=== PATIENT | female | born 1995 | race Caucasian/White ===

== ENCOUNTER 2019-05-03 18:29 | Emergency (ER) | payer OTHER ==
[~2019-05-03] VITALS: Ht 167.6 cm; Wt 72.6 kg
--- OUTSIDE RECORDS SUMMARY | 2019-05-03 18:31 | XMS REPORT ---
[facility] Address Unknown Phone Unavailable Care Team Providers [facility] Front Desk Clerk Name Role Phone Unavailable Unavailable Payers Payer Name Policy Type Policy Number Effective Date Expiration Date Problems This patient has no known problems. Allergies, Adverse Reactions, Alerts Allergy Name Allergy Type Status Severity Reaction(s) Onset Date Inactive Date Treating Clinician Comments No Known Allergies DA Active U 2015-03-21 00:00:00 Medications This patient has no known medications. Results Test Description Test Time Test Comments Text Results Atomic Results Result Comments URINALYSIS COMPLETE 2019-04-30 17:27:00 UA COLOR (test code=COLU) YELLOW YELLOW UA APPEARANCE (test code=APPU) CLEAR CLEAR UA GLUCOSE DIPSTICK (test code=DGLUU) NEGATIVE mg/dL NEGATIVE UA BILIRUBIN DIPSTICK (test code=BILU) NEGATIVE mg/dL NEGATIVE UA KETONE DIPSTICK (test code=KETU) >150 (4+) mg/dL NEGATIVE UA SPECIFIC GRAVITY (test code=SGU) 1.024 1.001-1.035 UA BLOOD DIPSTICK (test code=RIKA) Negative mg/dL NEGATIVE UA PH DIPSTICK (test code=VIVIAN) 8.5 5.0-8.0 UA PROTEIN DIPSTICK (test code=PROU) 100 (2+) mg/dL NEGATIVE UA UROBILINIOGEN DIPSTICK (test code=URO) Normal mg/dL NEGATIVE UA NITRITE DIPSTICK (test code=DAVIE) NEGATIVE NEGATIVE UA LEUKOCYTE ESTERASE W REFLEX (test code=LEUUR) NEGATIVE Mayito/uL NEGATIVE UA WBC (test code=WBCU) 0-5 per HPF 0-5 UA RBC (test code=RBCU) 0-2 #/HPF 0-5 UA EPITHELIAL CELLS (test code=EPIU) FEW per HPF FEW UA BACTERIA (test code=BACU) FEW #/HPF NONE UA MUCUS (test code=MUCU) MODERATE #/LPF FEW Urine Source? Clean CatchURINALYSIS [id number] 17:24:00* Test Item Value Reference Range Comments UA COLOR (test code=COLU) YELLOW YELLOW UA APPEARANCE (test code=APPU) CLEAR CLEAR UA GLUCOSE DIPSTICK (test code=DGLUU) NEGATIVE mg/dL NEGATIVE UA BILIRUBIN DIPSTICK (test code=BILU) NEGATIVE mg/dL NEGATIVE UA KETONE DIPSTICK (test code=KETU) >150 (4+) mg/dL NEGATIVE UA SPECIFIC GRAVITY (test code=SGU) 1.024 1.001-1.035 UA BLOOD DIPSTICK (test code=RIKA) Negative mg/dL NEGATIVE UA PH DIPSTICK (test code=VIVIAN) 8.5 5.0-8.0 UA PROTEIN DIPSTICK (test code=PROU) 100 (2+) mg/dL NEGATIVE UA UROBILINIOGEN DIPSTICK (test code=URO) Normal mg/dL NEGATIVE UA NITRITE DIPSTICK (test code=DAVIE) NEGATIVE NEGATIVE UA LEUKOCYTE ESTERASE W REFLEX (test code=LEUUR) NEGATIVE Mayito/uL NEGATIVE UA WBC (test code=WBCU) per HPF 0-5 UA RBC (test code=RBCU) per HPF 0-5 UA EPITHELIAL CELLS (test code=EPIU) per HPF Few UA BACTERIA (test code=BACU) per HPF NONE Urine Source? Clean CatchBASIC METABOLIC [id number] 15:54:00* Test Item Value Reference Range Comments SODIUM (test code=NA) 137 mmol/L 136-145 POTASSIUM (test code=K) 3.9 mmol/L 3.5-5.1 CHLORIDE (test code=CL) 102.0 mmol/L 98-107 CARBON DIOXIDE (test code=CO2) 24.0 mmol/L 21-32 ANION GAP (test code=GAP) 14.9 10-20 GLUCOSE (test code=GLU) 84 mg/dL 74-106 BLOOD UREA NITROGEN (test code=BUN) 5 mg/dL 7-18 GLOMERULAR FILTRATION RATE (test code=GFR) > 60 mL/min >=60 Estimated GFR by using Modified MDRD formula.Chronic kidney disease is defined as either kidney damageor GFR <60 mL/min/1.73 m2 for >3 months. CREATININE (test code=CREAT) 0.60 mg/dL 0.55-1.02 Note change in reference range due to change in reagent. BUN/CREATININE RATIO (test code=BUN/CREA) 7.7 10-20 CALCIUM (test code=CA) 9.8 mg/dL 8.5-10.1 HEPATIC FUNCTION [id number] 15:54:00* Test Item Value Reference Range Comments TOTAL PROTEIN (test code=PROT) 8.4 gram/dL 6.4-8.2 ALBUMIN (test code=ALB) 4.5 g/dL 3.4-5.0 GLOBULIN (test code=GLOB) 3.9 gram/dL 2.7-4.2 ALBUMIN/GLOBULIN RATIO (test code=A/G) 1.2 0.75-1.50 BILIRUBIN TOTAL (test code=BILT) 0.50 mg/dL 0.0-1.0 BILIRUBIN DIRECT (test code=BILD) 0.15 mg/dL 0.0-0.20 SGOT/AST (test code=AST) 14 IUnit/L 15-37 SGPT/ALT (test code=ALT) 32 IUnit/L 12-78 ALKALINE PHOSPHATASE TOTAL (test code=ALKP) 55 IUnit/L 45-117 Note change in reference range due to change in reagent. [id number] 15:54:00* Test Item Value Reference Range Comments LIPASE (test code=LIP) 59 U/L 73.0-393.0 HCG SERUM [id number] 15:54:00* Test Item Value Reference Range Comments HCG SERUM BETA (test code=HCG) 66594.0 mIU/mL 0-3 Interfering substances present in the serum of somepatients may cause a false-positive result in this assay.Questionable elevations in serum hCG should be confirmedwith a urine hCG. Suspected Trophoblastic Neoplasms shouldnot be diagnosed based on serun hCG/beta hCG alone. Theymust be confirmed by clinical history and tissue diagnosis.INTERPRETATION:B-HCG LEVELS <5 SHOULD BE CONSIDERED "NEGATIVE." *WHEN BODERLINE RESULTS ARE ENCOUNTERED,PATIENT SAMPLESSHOULD BE REDRAWN 48 HOURS. 0-1 WEEKS AFTER CONCEPTION 5-50 MIU/ML1-2 WEEKS AFTER CONCEPTION 50-500 MIU/ML2-3 WEEKS AFTER CONCEPTION 100 -5,000 MIU/ML3-4 WEEKS AFTER CONCEPTION 500-10,000 MIU/ML4-5 WEEKS AFTER CONCEPTION 1000 -50,000 MIU/ML5-6 WEEKS AFTER CONCEPTION 10,000-100,000 MIU/ML6-8 WEEKS AFTER CONCEPTION 15,000- 200,000 MIU/ML2-3 MONTHS AFTER CONCEPTION 10,000-100,000 MIU/ML - US PREG UT [id number] 15:38:00 Name: PRINCESS REGAN [facility] : 1995 Age/S: 23 / F [address] [facility] Unit #: [id number] Loc: [place] [address] Phys: Lynn Nesbitt NP Acct: [id number] Dis Date: Status: REG ER PHONE #: [phone] Exam Date: 04/30/2019 1529 FAX #: [phone] Reason: PELVIC PAIN EXAMS: CPT CODE: [id number] US PREG UT TRANSVAGINAL 35028 REASON FOR EXAM: VAGINAL BLEEDING/PELVIC PAIN EXAM ORDER DATE: 04/30/2019 2:45 PM Attending MRaymundo: Lynn Nesbitt NP PROCEDURE: - US PREG 1ST TRIMTR, - DUP AB/PEL/SC COMP, - US PREG UT TRANSVAGINAL Technique: Grayscale images, color doppler, and spectral doppler images of the uterus and ovaries were obtained utilizing A transabdominal and transvaginal approach. Comparison study: None FINDINGS: Uterus: size: 8.5 x 3.7 x 5.7 cm using transabdominal measurements There is an intrauterine gestational sac with a mean diameter of 2.4 cm. Yolk sac measuring up to 5 mm is present. There is a pole with a crown-rump length of 9.3 mm. heart rate measures 147 bpm. There is a subchorionic hematoma measuring up to 8 mm in size. A second subchorionic hematoma measuring up to 6 mm in size is present. There is a third subchorionic hematoma which also measures 8 mm in size. Right ovary: size: 4.2 x 2.3 x 2.4 cm cysts/masses: Incidental note is made of a corpus luteal cyst that measures up to 1.7 cm in diameter Doppler findings: Normal arterial and venous waveforms. adnexal masses: None Left ovary: size: 1.7 x 1.3 x 1.5 cm cysts/masses: None Doppler findings: Normal arterial and venous waveforms. adnexal masses: None Free fluid: No fluid seen in the cul-d e-sac. IMPRESSION: PAGE 1 S igned Report (CONTINUED) Name: PRINCESS REGAN [facility] : 1995 Age/S: 23 / F [address] [facility] Unit #: [id number] Loc: [place] [address] Phys: Lynn Nesbitt [employer] Acct: [id number] Dis Date: Status: REG ER PHONE #: [phone] Exam Date: 04/30/20191528 FAX #: [phone] Reason: PELVIC PAIN EXAMS: CPT CODE: [id number] US PREG UT TRANSVAGINAL 17148 <Continued> Viable intrauterine with estimated gestational age 7 weeks 1 day +/-3 days. Subchorionic hematomas as described above. at 1538 Reported and signed by: Thierno Gerardo MD CC: Lynn Nesbitt NP Technologist: HÉCTOR ROGERS RT(R),RDMS Trnscb Date/Time: 04/30/2019 (1538) [email or web address] Orig Print D/T: S: 04/30/2019 (1541) Probe: [id number] PAGE 2 Signed Report - DUP AB/PEL/SC COMP 2019-04-30 15:38:00 Name: PRINCESS REGAN [facility] : 1995 Age/S: 23 / F [address] Unit #: [id number] Loc: [place] [address] Phys: Lynn Nesbitt [employer] Acct: [id number] Dis Date: Status: REG ER PHONE #: [phone] Exam Date: 04/30/2019 1529 FAX #: [phone] Reason: PELVIC PAIN EXAMS: CPT CODE: [id number] DUP AB/PEL/SC COMP 19921 REASON FOR EXAM: VAGINAL BLEEDING/PELVIC PAIN EXAM ORDER DATE: 04/30/2019 2:45 PM Attending Marsha: Lynn Nesbitt NP PROCEDURE: - US PREG 1ST TRIMTR, - DUP AB/PEL/SC COMP, - US PREG UT TRANSVAGINAL Technique: Grayscale images, color doppler, and spectral doppler images of the uterus and ovaries were obtained utilizing A transabdominal and transvaginal approach. Comparison study: None FINDINGS: Uterus: size: 8.5 x 3.7 x 5.7 cm using transabdominal measurements There is an intrauterine gestational sac with a mean diameter of 2.4 cm. Yolk sac measuring up to 5 mm is present. There is a pole with a crown-rump length of 9.3 mm. heart rate measures 147 bpm. There is a subchorionic hematoma measuring up to 8 mm in size. A second subchorionic hematoma measuring up to 6 mm in size is present. There is a third subchorionic hematoma which also measures 8 mm in size. Right ovary: size: 4.2 x 2.3 x 2.4 cm cysts/masses: Incidental note is made of a corpus luteal cyst that measures up to 1.7 cm in diameter Doppler findings: Normal arterial and venous waveforms. adnexal masses: None Left ovary: size: 1.7 x 1.3 x 1.5 cm cysts/masses: None Doppler findings: Normal arterial and venous waveforms. adnexal masses: None Free fluid: No fluid seen in the cul-de-sac. IMPRESSION: PAGE 1 Signed Report (CONTINUED) Name: [facility]INCESS [facility] : 1995 Age/S: 23 / F [address] [facility] Unit #: [id number] Loc: [place] [address] Phys: Lynn Nesbitt NP Acct: [id number] Dis Date: Status: REG ER PHONE #: [phone] Exam Date: 04/30/2019 1529 FAX #: [phone] Reason: PELVIC PAIN EXAMS: CPT CODE: [id number] DUP AB/PEL/SC COMP 77721 < Continued> Viable intrauterine with estimated gestational age 7 weeks 1 day +/-3 days. Subchorionic hematomas as described above. at 1538 Reported and signed by: Thierno Gerardo MD CC: Lynn Nesbitt NP Technologist: HÉCTOR ROGERS RT(R),RDMS Trnscb Date/Time: 04/30/2019 (1538) [email or web address] Orig Print D/T: S: 04/30/2019 (0850) Probe: PAGE 2 Signed Report - US PREG 1ST [id number] 15:38:00 Name: PRINCESS REGAN [facility] : 1995 Age/S: 23 / F [address] [facility] Unit #: [id number] Loc: [place] [address] Phys: Lynn Nesbitt NP Acct: [id number] Dis Date: Status: REG ER PHONE #: [phone] Exam Date: 04/30/2019 1529 FAX #: [phone] Reason: VAGINAL BLEEDING/PELVIC PAIN EXAMS: CPT CODE: [id number] US PREG 1ST TRIMTR 00581 REASON FOR EXAM: VAGINAL BLEEDING/PELVIC PAIN EXAM ORDER DATE: 04/30/2019 2:45 PM Attending MRaymundo: Lynn Nesbitt NP PROCEDURE: - US PREG 1ST TRIMTR, - DUP AB/PEL/SC COMP, - US PREG UT TRANSVAGINAL Technique: Grayscale images, color doppler, and spectral doppler images of the uterus and ovaries were obtained utilizing A transabdominal and transvaginal approach. Comparison study: None FINDINGS: Uterus: size: 8.5 x 3.7 x 5.7 cm using transabdominal measurements There is an intrauterine gestational sac with a mean diameter of 2.4 cm. Yolk sac measuring up to 5 mm is present. There is a pole with a crown-rump length of 9.3 mm. heart rate measures 147 bpm. There is a subchorionic hematoma measuring up to 8 mm in size. A second subchorionic hematoma measuring up to 6 mm in size is present. There is a third subchorionic hematoma which also measures 8 mm in size. Right ovary: size: 4.2 x 2.3 x 2.4 cm cysts/masses: Incidental note is made of a corpus luteal cyst that measures up to 1.7 cm in diameter Doppler findings: Normal arterial and venous waveforms. adnexal masses: None Left ovary: size: 1.7 x 1.3 x 1.5 cm cysts/masses: None Doppler findings: Normal arterial and venous waveforms. adnexal masses: None Free fluid: No fluid seen in the cul-de-sac. IMPRESSION: PAGE 1 Signed Report (CONTINUED) Name: PRINCESS REGAN [facility] : 1995 Age/S: 23 / F [address] [facility] Unit #: [id number] Loc: [place] [address] Phys: Lynn Nesbitt NP Acct: [id number] Dis Date: Status: REG ER PHONE #: [phone] Exam Date: 04/30/2019 1529 FAX #: [phone] Reason: VAGINAL BLEEDING/PELVIC PAIN EXAMS: CPT CODE: [id number] PREG 1ST TRIMTR 40604 < Continued> Viable intrauterine with estimated gestational age 7 weeks 1 day +/-3 days. Subchorionic hematomas as described above. at 1538 Reported and signed by: Thierno Gerardo MD CC: Lynn Nesbitt NP Technologist: HÉCTOR ROGERS RT(R),[facility] Trnscb Date/Time: 04/30/2019 (1538) [email or web address] Orig Print D/T: S: 04/30/2019 (154) Probe: PAGE 2 Signed Report BASIC METABOLIC [id number] 15:31:00* Test Item Value Reference Range Comments SODIUM (test code=NA) 137 mmol/L 136-145 POTASSIUM (test code=K) 3.9 mmol/L 3.5-5.1 CHLORIDE (test code=CL) 102.0 mmol/L 98-107 CARBON DIOXIDE (test code=CO2) mmol/L 21-32 ANION GAP (test code=GAP) 10-20 GLUCOSE (test code=GLU) mg/dL 74-106 BLOOD UREA NITROGEN (test code=BUN) mg/dL 7-18 GLOMERULAR FILTRATION RATE (test code=GFR) mL/min >=60 CREATININE (test code=CREAT) mg/dL 0.55-1.02 BUN/CREATININE RATIO (test code=BUN/CREA) 10-20 CALCIUM (test code=CA) mg/dL 8.5-10.1 HEPATIC FUNCTION [id number] 15:31:00* Test Item Value Reference Range Comments TOTAL PROTEIN (test code=PROT) gram/dL 6.4-8.2 ALBUMIN (test code=ALB) g/dL 3.4-5.0 GLOBULIN (test code=GLOB) gram/dL 2.7-4.2 ALBUMIN/GLOBULIN RATIO (test code=A/G) 0.75-1.50 BILIRUBIN TOTAL (test code=BILT) mg/dL 0.0-1.0 BILIRUBIN DIRECT (test code=BILD) mg/dL 0.0-0.20 SGOT/AST (test code=AST) IUnit/L 15-37 SGPT/ALT (test code=ALT) IUnit/L 12-78 ALKALINE PHOSPHATASE TOTAL (test code=ALKP) IUnit/L 45-117 [id number] 15:31:00* Test Item Value Reference Range Comments LIPASE (test code=LIP) U/L 73.0-393.0 HCG SERUM [id number] 15:31:00* Test Item Value Reference Range Comments HCG SERUM BETA (test code=HCG) mIU/mL 0-3 CBC W/O [id number] 15:13:00* Test Item Value Reference Range Comments WHITE BLOOD CELL (test code=WBC) 11.9 K/mm3 4.5-12.5 RED BLOOD CELL (test code=RBC) 4.62 mill/mm3 3.7-5.2 HEMOGLOBIN (test code=HGB) 14.2 gram/dL 11.5-15.5 HEMATOCRIT (test code=HCT) 40.1 % 36.0-46.0 MEAN CELL VOLUME (test code=MCV) 86.8 fL 80-98 MEAN CELL HGB (test code=MCH) 30.7 picogram 27.0-33.0 MEAN CELL HGB CONCETRATION (test code=MCHC) 35.4 gram/dL 33.0-36.0 RED CELL DISTRIBUTION WIDTH (test code=RDW) 11.2 % 11.6-16.2 PLATELET COUNT (test code=PLT) 320 K/mm3 150-450 MEAN PLATELET VOLUME (test code=MPV) 9.9 fL 6.7-11.0
[2019-05-03] MEDS ORDERED: SODIUM CHLORIDE 0.9% 1000ML 1,000 ML IV ONE ×2 (19:30→21:00)
[2019-05-03] MEDS ORDERED: ONDANSETRON HCL INJ 2MG/ML 2ML 2 MG/ML VIAL IV ONE (20:00)
[2019-05-03 20:05] LABS: BILIRUBIN,URINE NEGATIVE (NEGATIVE); CLARITY,URINE SL CLOUDY (CLEAR); COLOR,URINE YELLOW (YELLOW); LEUKOCYTE ESTERASE ,URINE NEGATIVE (NEGATIVE); NITRITE,URINE NEGATIVE (NEGATIVE); PROTEIN,URINE DIPSTICK TRACE (NEGATIVE); URINE UROBILINOGEN 0.2 mg/dL (0.2 - 1)
[2019-05-03 20:13] LABS: BASOPHILS # (AUTO) 0.1 (0.0-0.1); BASOPHILS % 0.4 % (0.0-1.0); EOSINOPHILS # (AUTO) 0.1 (0.0-0.4); EOSINOPHILS % 0.9 % (0.0-6.0); HEMATOCRIT 39.4 % (34.2-44.1); HEMOGLOBIN 14.1 g/dL (12.0-16.0); LYMPHOCYTES # (AUTO) 2.4 (1.0-3.2); LYMPHOCYTES % 17.5 % (18.0-39.1); MEAN CORPUSCULAR HEMOGLOBIN 30.9 pg (28-32); MEAN CORPUSCULAR HGB CONC 35.8 g/dL (31-35); MEAN CORPUSCULAR VOLUME 86.2 fL (81-99); MONOCYTES # (AUTO) 1.1 (0.2-0.8); MONOCYTES % 8.5 % (4.4-11.3); NEUTROPHILS # (AUTO) 9.7 (2.1-6.9); NEUTROPHILS % 72.4 % (38.7-80.0); PLATELET COUNT 325 x10e3/uL (140-360); RED BLOOD COUNT 4.57 x10e6/uL (3.6-5.1)
[2019-05-03 20:23] LABS: KETONES,URINE 2+ (NEGATIVE)
[2019-05-03 20:25] LABS: BACTERIA,URINE MODERATE /HPF; EPITHELIAL CELLS,URINE MODERATE /LPF
[2019-05-03 20:26] LABS: MUCUS,URINE FEW (RARE)
[2019-05-03 20:42] LABS: ANION GAP 15.4 mmol/L (8-16); BLOOD UREA NITROGEN 7 mg/dL (7-26); BUN/CREATININE RATIO 10 (6-25); CALCIUM 10.7 mg/dL (8.4-10.2); CARBON DIOXIDE 27 mmol/L (22-29); CHLORIDE 96 mmol/L (98-107); CREATININE, SERUM 0.69 mg/dL (0.57-1.11); EST GLOMERULAR FILTRATION RATE > 60 ML/MIN (60-); GLUCOSE 98 mg/dL (74-118); POTASSIUM 3.4 mmol/L (3.5-5.1); SODIUM 135 mmol/L (136-145)
[2019-05-03 21:27] VITALS: BP 116/82
== END 2019-05-03 22:01 | disposition home or self-care (01) ==
LOC: ER 18:29
DX: O20.9 Hemorrhage in early pregnancy, unspecified (principal); O21.1 Hyperemesis gravidarum with metabolic disturbance
CPT/HCPCS: 36415; 80048; 81001; 84702; 85025; 96374; 99283; J2405; J7030